=== PATIENT | female | born 1990 | race Caucasian/White ===

== ENCOUNTER 2020-09-16 22:50 | Emergency (ER) | payer BC, MEDICAID ==
[~2020-09-16 22:50] MED LIST: Acetaminophen 325 MG Tab PO SCH
--- NOTE | 2020-09-16 23:54 | EDM.PDOC ---
ED HPI GENERAL MEDICAL PROBLEM - General Chief Complaint: [facility] [employer] Problem Stated Complaint: Im giving Time Seen by Provider: 09/16/20 22:55 Source of Information: Reports: Patient History Limitations: Reports: No Limitations - History of Present Illness INITIAL COMMENTS - FREE TEXT/NARRATIVE: Patient is a 30 y/o female who presents to the ED for labor and delivery. Her water broke around 2230 and patient delivered baby herself prior to getting to the ED around 2250. This would be her 5th child and she had a delivery plan expected for Friday with Dr. Georges. Pre-zach care and no complications in this or previous ones. ED ROS GENERAL - Review of Systems Review Of Systems: See Below Constitutional: Reports: No Symptoms HEENT: Reports: No Symptoms Respiratory: Reports: No Symptoms Cardiovascular: Reports: No Symptoms GI/Abdominal: Reports: Other (contractions and labor) : Reports: No Symptoms Musculoskeletal: Reports: No Symptoms Skin: Reports: No Symptoms Neurological: Reports: No Symptoms Psychiatric: Reports: No Symptoms ED EXAM, GENERAL - Physical Exam Exam: See Below Exam Limited By: No Limitations General Appearance: Alert, No Apparent Distress Nose: Normal Inspection Head: Atraumatic, Normocephalic Neck: Normal Inspection, Supple, Non-Tender Respiratory/Chest: No Respiratory Distress, Lungs Clear, Normal Breath Sounds, No Accessory Muscle Use, Chest Non-Tender Cardiovascular: Normal Peripheral Pulses, Regular Rate, Rhythm, No Edema, No Murmur GI/Abdominal: Normal Bowel Sounds, Soft, Non-Tender, No Distention, Other (firm uterus) (Female) Exam: Normal External Exam, Other (placenta delivered whole with minimal bleeding; umbilical cord clamped and cut; baby weighed 8 lbs 3 oz (soft fundus, good tire mechanic reflexes bilaterally, rutting, and pink skin).) Neurological: Alert, Oriented, CN II-XII Intact, Normal Cognition, No Motor/Sensory Deficits Psychiatric: Normal Affect, Normal Mood Skin Exam: Warm, Dry, Intact, Normal Color, No Rash Course - Vital Signs Text/Narrative:: Patient's vitals: pulse 71, BP 117/77, SpO2 100 on room air Baby's vitals: resp 40, HR 120 Called [facility], which is where patient intended to deliver, and talked with Lidya (nurse convention services manager). Dr. Sheikh is on-call for BR[facility]IFIER and refused to accepted patient and baby. I was not able to speak to this physician directly and asked to numerous times. He told Lidya that the patient could go home if she wasn't bleeding or stay at our facility. I explained to Lidya that we did not have formula, diapers, a baby warmer, or pitocin for the patient. Called [facility]'s administration. Patient called Dr Georges and said that he was upset that admission was denied. I called [facility] and Dr. Putnam (BRINE PURIFIER) would accept the patient and assembly mechanic would see the baby. Patient is upset, but was appreciative of having another facility to go to get post- care. Patient and baby transported by EMS, with nurse, to [place]. Patient baby. Departure - Departure Time of Disposition: 00:22 Disposition: DC/Tfer to Acute Hospital 02 Condition: Good Clinical Impression: Precipitous delivery - Discharge Information *PRESCRIPTION DRUG MONITORING PROGRAM REVIEWED*: Not Applicable *COPY OF PRESCRIPTION DRUG MONITORING REPORT IN PATIENT EDWIN: Not Applicable
== END 2020-09-17 00:45 ==
LOC: LB.ED 22:50
DX: O62.3 Precipitate labor (principal)
CPT/HCPCS: 99285; A9270